=== PATIENT | male | born 1955 | race Hispanic/Latino ===

== ENCOUNTER 2017-12-01 12:16 | Emergency (ER) | payer OTHER ==
[~2017-12-01] VITALS: Ht 185.4 cm; Wt 117.9 kg
[~2017-12-01 12:16] MED LIST: ANUSOL HC30 GM TOP; DOLOBID500 MG PO; ENDOCET 325 MG-1 TA1 PO; FLEXERIL10 MG PO; LEVSIN-SL0.125 MG SL; MAALOX ADVANCE355 M2 PO; OXYCODONE5 M1 PO; OXYCODONE5 MG PO; OXYCONTIN10 MG PO; PERCOCET 325 MG1 TA2 PO; POLYTRIM O200 GTT/BO OP; REGLAN10 M1 PO; TRAMADOL50 MG PO; TRIAMTERENE AND1 CAP PO; ZANTAC 150150 MG PO
[2017-12-01 12:28] VITALS: BP 156/93
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
== END 2017-12-01 14:35 ==
LOC: ERH 12:16
DX: Z76.0 Encounter for issue of repeat prescription (principal); M54.2 Cervicalgia
CPT/HCPCS: 72050; 99281

== ENCOUNTER 2017-12-03 08:52 | Emergency (ER) | payer OTHER ==
[2017-12-03 09:00] VITALS: BP 143/90
[2017-12-03] MEDS ORDERED: CYCLOBENZAPRINE10 M1 PO (11:51)
[2017-12-03] MEDS ORDERED: MEDROL4 M2 PO (11:51)
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
== END 2017-12-03 11:58 ==
LOC: ERH 08:52
DX: M54.5 Low back pain (principal)